=== PATIENT | male | born 1960 | race African-American/Black ===

== ENCOUNTER 2019-05-10 19:14 | Inpatient (IN) | payer MEDICAID ==
[~2019-05-10] VITALS: Ht 177.8 cm; Wt 78.0 kg
[2019-05-10] MEDS ORDERED: ONDANSETRON HCL 4MG/2ML INJ IV STA (21:53)
[2019-05-10] MEDS ORDERED: MORPHINE SULFATE 4 MG/ML CPJ (NOT FOR IM USE) IV STA (21:53)
[2019-05-10] MEDS ORDERED: FAMOTIDINE 20MG/2ML VIAL IV ONE (22:00)
[2019-05-10 23:25] LABS: BASOPHILS % 0.3 % (0.0-2.0); EOSINOPHILS % 1.9 % (0.0-5.0); HEMATOCRIT. 38.1 % (42.0-52.0); HEMOGLOBIN. 13.2 g/dL (14.0-18.0); LYMPHOCYTES % 13.7 % (20.0-50.0); MEAN CORPUSCULAR HEMOGLOBIN 33.7 pg (28.0-32.0); MEAN CORPUSCULAR VOLUME 97.2 fL (80.0-94.0); MEAN PLATELET VOLUME 8.1 fl (7.4-10.4); MONOCYTES % 10.5 % (2.0-8.0); NEUTROPHILS % 73.6 % (40.0-76.0); PLATELET 158 x1000/uL (130-400); RED BLOOD CELL COUNT 3.92 mill/uL (4.7-6.1); RED CELL DISTRIBUTION WIDTH 14.1 % (11.6-14.6)
[2019-05-10 23:26] LABS: CHLORIDE 101 mEq/L (98-107)
[2019-05-10 23:31] LABS: ETHANOL BLOOD < 10 mg/dL
[2019-05-10 23:32] LABS: INR 0.9; PARTIAL THROMBOPLASTIN TIME 26.2 sec (23.4-31.0); PROTHROMBIN TIME 9.8 sec (9.6-11.0)
[2019-05-10 23:35] LABS: CREATINE KINASE 54 IU/L (39-308)
[2019-05-10 23:38] LABS: CREATINE KINASE MB FRACTION < 1.0 ng/mL (0.5-3.6)
[2019-05-11] MEDS ORDERED: MORPHINE SULFATE 4 MG/ML CPJ (NOT FOR IM USE) IV ONE (00:30)
[2019-05-11 04:00] VITALS: BP 123/63
[2019-05-11 04:11] VITALS: BP 123/75
[2019-05-11] MEDS ORDERED: MAGNESIUM/ALUMINUM HYDROXIDE/SIMETHICONE 30ML UDC PO PRN (04:30)
[2019-05-11] MEDS ORDERED: DOCUSATE SODIUM 100MG CAPSULE PO PRN (04:30)
[2019-05-11] MEDS ORDERED: ONDANSETRON HCL 4MG/2ML INJ IV PRN (04:30)
[2019-05-11] MEDS ORDERED: CLONIDINE 0.1MG TABLET PO PRN (04:30)
[2019-05-11] MEDS ORDERED: ACETAMINOPHEN 325MG TABLET PO PRN (04:30)
[2019-05-11] MEDS ORDERED: LISI-604 MT (04:44)
[2019-05-11] MEDS ORDERED: IBUP-2030 MT (04:44)
[2019-05-11] MEDS ORDERED: MULT-1146 MT (04:44)
[2019-05-11] MEDS ORDERED: ATOR20TA MT (04:44)
[2019-05-11] MEDS ORDERED: MAGN400C MT (04:44)
[2019-05-11] MEDS ORDERED: ASPI-1393 MT (04:44)
[2019-05-11] MEDS ORDERED: COR6 MT (04:44)
[2019-05-11] MEDS: PANTOPRAZOLE SODIUM 40 MG/VIAL IV SCH (05:26)
[2019-05-11] MEDS: DEXT 5%/0.45% NACL 1000ML 1,000 ML IV SCH ×2 (05:26→19:04)
[2019-05-11 08:00] VITALS: BP 139/86
[2019-05-11] MEDS: MORPHINE SULFATE 2 MG/ML CPJ (NOT FOR IM USE) IV PRN ×4 (08:48→21:20)
[2019-05-11] MEDS ORDERED: HYDRALAZINE 20MG/ML VIAL IV PRN (11:45)
[2019-05-11 12:00] VITALS: BP 134/84
[2019-05-11 16:00] VITALS: BP 144/78
[2019-05-11 20:00] VITALS: BP 135/60
[2019-05-11] MEDS: CARVEDILOL 6.25 MG TABLET PO SCH (20:45)
[2019-05-11] MEDS: LISINOPRIL 20MG TABLET PO SCH (20:46)
[2019-05-12] VITALS: BP 120/65
[2019-05-12] MEDS: MORPHINE SULFATE 2 MG/ML CPJ (NOT FOR IM USE) IV PRN ×6 (01:25→22:35)
[2019-05-12 04:00] VITALS: BP 115/70
[2019-05-12 08:00] VITALS: BP 115/70
[2019-05-12 08:02] LABS: CHLORIDE 99 mEq/L (98-107)
[2019-05-12 08:03] LABS: EOSINOPHILS % 2.8 % (0.0-5.0); HEMATOCRIT. 36.6 % (42.0-52.0); HEMOGLOBIN. 12.6 g/dL (14.0-18.0); MEAN CORPUSCULAR HEMOGLOBIN 33.6 pg (28.0-32.0); MEAN CORPUSCULAR VOLUME 97.3 fL (80.0-94.0); MONOCYTES % 12.7 % (2.0-8.0); NEUTROPHILS % 74.5 % (40.0-76.0); PLATELET 169 x1000/uL (130-400); RED BLOOD CELL COUNT 3.76 mill/uL (4.7-6.1); RED CELL DISTRIBUTION WIDTH 14.3 % (11.6-14.6)
[2019-05-12] MEDS: PANTOPRAZOLE SODIUM 40 MG/VIAL IV SCH (08:05)
[2019-05-12] MEDS: CARVEDILOL 6.25 MG TABLET PO SCH ×2 (08:05→20:36)
[2019-05-12] MEDS: LISINOPRIL 20MG TABLET PO SCH (08:05)
[2019-05-12 08:12] LABS: HDL CHOLESTEROL 71 mg/dL (40-59); LDL CHOLESTEROL 29 mg/dL (5-100)
[2019-05-12] MEDS: DEXT 5%/0.45% NACL 1000ML 1,000 ML IV SCH (10:48)
[2019-05-12 12:00] VITALS: BP 108/68
[2019-05-12 16:00] VITALS: BP 113/67
[2019-05-12 20:00] VITALS: BP 107/61
[2019-05-12] MEDS: FAMOTIDINE 20MG/2ML VIAL IV SCH (20:35)
[2019-05-13] VITALS: BP 102/61
[2019-05-13] MEDS: DEXT 5%/0.45% NACL 1000ML 1,000 ML IV SCH (01:19)
[2019-05-13] MEDS: MORPHINE SULFATE 2 MG/ML CPJ (NOT FOR IM USE) IV PRN ×2 (03:11→08:20)
[2019-05-13 04:00] VITALS: BP 113/59
[2019-05-13 08:00] VITALS: BP 103/63
[2019-05-13] MEDS: FAMOTIDINE 20MG/2ML VIAL IV SCH (08:18)
[2019-05-13] MEDS: LISINOPRIL 20MG TABLET PO SCH (09:00)
[2019-05-13] MEDS: CARVEDILOL 6.25 MG TABLET PO SCH (09:00)
[2019-05-13 11:12] VITALS: BP 103/63
== END 2019-05-13 11:50 | disposition home or self-care (01) | DRG 282 ==
LOC: ER 19:14 → 5WST 05-11 00:53 → ENRESERV 05-11 02:36
PROVIDERS: ADMIT Hospitalist; ATTEND Hospitalist
DX: K85.90 Acute pancreatitis without necrosis or infection, unspecified (principal); I11.0 Hypertensive heart disease with heart failure; I50.9 Heart failure, unspecified; F10.10 Alcohol abuse, uncomplicated; K59.00 Constipation, unspecified; Z79.899 Other long term (current) drug therapy; Z79.82 Long term (current) use of aspirin
CPT/HCPCS: 36415; 71045; 74176; 80061; 80320; 82550; 82553; 83880; 84443; 84484; 93005; 96374; 99285; C9113; J2270; J2405; J3490; G0480

== ENCOUNTER 2020-07-23 18:40 | Emergency (ER) | payer MEDICAID ==
[~2020-07-23] VITALS: Ht 172.7 cm; Wt 68.5 kg
[~2020-07-23 18:40] MED LIST: ASPI-1497 MT; ATOR20TA MT; COR6 MT; IBUP-2030 MT; LISI-604 MT; MAGN400C MT; MULT-1146 MT
[2020-07-23 18:43] VITALS: BP 138/64
[2020-07-23] MEDS ORDERED: ACETAMINOPHEN 500MG TABLET PO ONE (21:15)
[2020-07-23 21:50] LABS: BASOPHILS % 0.5 % (0.0-2.0); EOSINOPHILS % 2.4 % (0.0-5.0); HEMATOCRIT. 36.9 % (42.0-52.0); HEMOGLOBIN. 12.4 g/dL (14.0-18.0); LYMPHOCYTES % 19.8 % (20.0-50.0); MEAN CORPUSCULAR HEMOGLOBIN 33.3 pg (28.0-32.0); MEAN CORPUSCULAR VOLUME 98.7 fL (80.0-94.0); MONOCYTES % 8.3 % (2.0-8.0); PLATELET 194 x1000/uL (130-400); RED BLOOD CELL COUNT 3.74 mill/uL (4.7-6.1); RED CELL DISTRIBUTION WIDTH 14.4 % (11.6-14.6)
[2020-07-23 21:55] LABS: CHLORIDE 103 mEq/L (98-107)
[2020-07-24] MEDS ORDERED: THIA50TA10 PO (14:25)
== END 2020-07-24 00:18 | disposition left against medical advice (07) ==
LOC: ER 18:40
DX: R10.13 Epigastric pain (principal); R11.2 Nausea with vomiting, unspecified
CPT/HCPCS: 36415; 71045; 80053; 83880; 84484; 85025; 93005; 99285